=== PATIENT | female | born 1930 | race Caucasian/White ===

== ENCOUNTER 2016-11-16 15:05 | Emergency (ER) | payer OTHER ==
--- NOTE | ~2016-11-16 | CT71 ---
[facility] A Service of [facility] RADIOLOGY TEXT RESULTS PATIENT: BRY RM LOCATION: [facility] : 31 UNIT #: [id number] AGE: [address]: Panda Vera MD SEX: F ORDER DR: [id number] [facility] [address] [place], [place] [address] [id number] E MR#: [id number] Acc #: [id number] NAME: BRY RM : 1930 SEX: F STUDY DATE/TIME: 11/16/2016 14:05 UNIT: [facility] ROOM: STUDY DESCRIPTION: CT Head Wo Contrast Attending Physician: Panda Vera M.D. Ordering Physician: Panda Vera M.D. Primary Care Physician: Mars Myers A.P.R.N. MEDICAL IMAGING REPORT This report is preliminary unless electronic signature is present EXAM CT head, noncontrast. DATE OF EXAM 11/16/2016 HISTORY 86-year-old female in the ED after head injury. Slipped and fell today, striking left side of orbit region. Soft tissue laceration. TECHNIQUE CT examination of the head was performed without IV contrast. NOTE: This CT exam was performed with one or more of the following radiation dose reduction techniques: automatic exposure control, adjustment of mA and/or kV according to patient size, and iterative reconstruction. FINDINGS The examination shows a left supraorbital scalp hematoma, but there is no visible skull fracture. Deep to this, there is a small hemorrhagic cortical contusion in the underlying frontal lobe with a tiny amount of adjacent subarachnoid hemorrhage. There is no evidence of additional hemorrhage, acute cerebral edema or mass effect. No additional acute intracranial abnormalities demonstrated. Mild generalized cerebral cortical atrophy. Diffuse low-attenuation white matter changes, nonspecific, but likely related to chronic small vessel disease. IMPRESSION 1. Small acute hemorrhagic left frontal lobe cortical contusion with adjacent tiny amount of subarachnoid hemorrhage. This is deep to the left supraorbital scalp hematoma. No skull fracture. No associated cerebral edema or mass effect. No additional acute intracranial [facility] A Service of [facility] RADIOLOGY TEXT RESULTS PATIENT: BRY RM LOCATION: [facility] : 31 UNIT #: [id number] AGE: [address]: Panda Vera MD SEX: F ORDER DR: abnormalities demonstrated. 2. Mild generalized cerebral atrophy. 3. Results were discussed by telephone with the ED physician prior to dictation. Dictated by... Armando Mims M.D. THIS IS AN ELECTRONICALLY VERIFIED REPORT Armando Mims M.D. at 11/17/2016 5:55 AM DEISY/sergio TD: 11/16/2016 16:47 JOB #: [id number] MEDICAL IMAGING REPORT COPY
--- NOTE | ~2016-11-16 | CR132 ---
[facility] A Service of [facility] RADIOLOGY TEXT RESULTS PATIENT: BRY RM LOCATION: [facility] : 31 UNIT #: [id number] AGE: [address]: Panda Vera MD SEX: F ORDER DR: [id number] [facility] [address] [place], [place] [address] [id number] E MR#: [id number] Acc #: [id number] NAME: BRY RM : 1930 SEX: F STUDY DATE/TIME: 11/16/2016 13:32 UNIT: [facility] ROOM: STUDY DESCRIPTION: CR Forearm 2 View Lt Attending Physician: Panda Vera M.D. Ordering Physician: aPnda Vera M.D. Primary Care Physician: Mars Myers A.P.R.N. MEDICAL IMAGING REPORT This report is preliminary unless electronic signature is present EXAM Left forearm series. DATE OF EXAM 11/16/2016 HISTORY 86-year-old female in the ED with left forearm pain and bruising after a fall today prior to arrival. TECHNIQUE 2 view left forearm series. FINDINGS No definite acute forearm fracture is identified. Probable old fracture deformity involving the base of the radial styloid. Remainder of the exam is negative. IMPRESSION No acute osseous abnormality. Probable old fracture deformity of the distal radius. Dictated by... Armando Mims M.D. THIS IS AN ELECTRONICALLY VERIFIED REPORT Armando Mims M.D. at 11/17/2016 5:55 AM DEISY/sergio TD: 11/16/2016 15:54 JOB #: [id number] [facility] A Service of [facility] RADIOLOGY TEXT RESULTS PATIENT: BRY RM LOCATION: [facility] : 31 UNIT #: [id number] AGE: [address]: Panda Vera MD SEX: F ORDER DR: MEDICAL IMAGING REPORT COPY
--- NOTE | ~2016-11-16 | CT52 ---
[facility] A Service of [facility] RADIOLOGY TEXT RESULTS PATIENT: BRY RM LOCATION: [facility] : 31 UNIT #: [id number] AGE: [address]: Panda Vera MD SEX: F ORDER DR: [id number] [facility] [address] [place], [place] [address] [id number] E MR#: [id number] Acc #: [id number] NAME: BRY RM : 1930 SEX: F STUDY DATE/TIME: 11/16/2016 14:08 UNIT: [facility] ROOM: STUDY DESCRIPTION: CT Cervical Spine Wo Cont Attending Physician: Panda Vera M.D. Ordering Physician: Panda Vera M.D. MEDICAL IMAGING REPORT This report is preliminary unless electronic signature is present EXAM CT cervical spine 11/16/2016. HISTORY 86-year-old female in the ED after head injury today. Fell, striking left orbit region. She complains of posterior neck pain. TECHNIQUE Thin-section axial CT images were obtained from the skull base through the lower margin of T2. Sagittal and coronal images were reconstructed. This CT exam was performed with one or more of the following radiation dose reduction techniques: automatic exposure control, adjustment of mA and/or kV according to patient size, and iterative reconstruction. FINDINGS No fracture or other acute osseous abnormality is demonstrated. Moderately severe degenerative disc space changes are present at C3-C4, C4-C5 and C5-C6. Advanced bilateral degenerative facet arthropathy throughout the cervical spine with slight anterolisthesis at C3-C4. IMPRESSION 1. No fracture or other acute osseous abnormality. 2. Multilevel mid- and lower cervical degenerative facet arthropathy and extensive bilateral degenerative facet arthropathy throughout the cervical spine. 3. Slight anterolisthesis at C3-C4. Dictated by... Armando Mims M.D. THIS IS AN ELECTRONICALLY VERIFIED REPORT [facility] A Service of [facility] RADIOLOGY TEXT RESULTS PATIENT: BRY RM LOCATION: [facility] : 31 UNIT #: [id number] AGE: [address]: Panda Vera MD SEX: F ORDER DR: Armando Mims M.D. at 11/17/2016 5:55 AM RGW/pcl TD: 11/16/2016 16:51 JOB #: [id number] MEDICAL IMAGING REPORT COPY
--- NOTE | ~2016-11-16 | CR150 ---
[facility] A Service of [facility] & [facility] RADIOLOGY TEXT RESULTS PATIENT: BRY RM LOCATION: [facility] : 31 UNIT #: [id number] AGE: [address]: Panda Vera MD SEX: F ORDER DR: [id number] [facility] [address] [place], [place] [address] [id number] E MR#: [id number] Acc #: [id number] NAME: BRY RM : 1930 SEX: F STUDY DATE/TIME: 11/16/2016 13:34 UNIT: [facility] ROOM: STUDY DESCRIPTION: CR Hip Min 2 Views Lt Attending Physician: Panda Vera M.D. Ordering Physician: Panda Vera M.D. MEDICAL IMAGING REPORT This report is preliminary unless electronic signature is present EXAM Left hip series 11/16/2016. HISTORY 86-year-old female in the ED with left hip pain and bruising after a fall today. TECHNIQUE Two-view left hip series. FINDINGS No fracture, dislocation or other acute osseous abnormality is visible. IMPRESSION Negative left hip series. Dictated by... Armando Mims M.D. THIS IS AN ELECTRONICALLY VERIFIED REPORT Armando Mims M.D. at 11/17/2016 5:55 AM DEISY/noah TD: 11/16/2016 15:53 JOB #: [id number] MEDICAL IMAGING REPORT COPY
[~2016-11-16 15:05] MED LIST: ASPIRIN81 M2 PO; ASPIRINEC PO; ATENOLOL PO; CALCIUM 500 + D1 TAB PO; FOSAMAX PO; LIDODERM30 EA TOP; LORTAB 7.5-3251 EACH PO; NITROGLYGERIN0.4 MG SL; NITROQUICK0.4 MG SL; NORCO 7.5-3251 EACH PO; OSCAL + D PO; PLENDIL PO; PLENDIL10 MG PO; PLETAL100 M2 PO; PLETAL50 MG PO; PREDNISONE PO; PRINIVIL; PRINIVIL10 MG PO; PRINIVIL5 MG PO; SIMVASTATIN40 MG PO; SPIRIVA18 MCG INH; SPIRIVA18 MCG PO; TENORMIN50 MG PO; TIMOPTIC2.5 ML OS; VITAMIN C; VITAMIN C PO; VITAMIN C500 M1 PO; VITAMIN C500 MG PO; ZESTRIL10 M2 PO; ZOCOR PO
[2016-11-16 15:48] LABS: BASOPHIL% 0.4 % (0-2.5); EOSINOPHIL% 0.1 % (0.0-7.0); HEMATOCRIT 27.3 % (35.0-45.0); HEMOGLOBIN 8.3 gm/dL (12.0-16.0); LYMPHOCYTE# 0.8 X10e3 (1.0-3.5); LYMPHOCYTE% 8.8 % (17.0-45.0); MEAN CELL VOLUME 74.5 FL (83-96); MEAN CORPUSCULAR HEMOGLOBIN 22.7 PG (28-34); MEAN CORPUSCULAR HGB CONC 30.5 g/dL (30-36); MEAN PLATELET VOLUME 8.3 FL (6.5-11.5); MONOCYTE# 0.5 X10e3 (0-1.0); MONOCYTE% 5.6 % (3.0-12.0); NEUTROPHIL# 7.5 X10e3 (1.5-7.1); NEUTROPHIL% 85.1 % (40-75); PLATELET COUNT 171 X10e3 (140-420); RED BLOOD COUNT 3.66 X10e (3.90-5.30); RED CELL DISTRIBUTION WIDTH 17.5 % (11.0-15.5); WHITE BLOOD COUNT 8.8 X10e3 (4.0-10.5)
[2016-11-16 15:52] LABS: PARTIAL THROMBOPLASTIN TIME 24.7 SECONDS (23.5-31.3); PROTHROMBIN TIME (PATIENT) 10.5 SECONDS (9.6-11.5)
[2016-11-16 15:58] LABS: BLOOD UREA NITROGEN 24 mg/dL (9-23); BUN/CREATININE RATIO 34.28; CALCIUM SERUM 9.1 mg/dL (8.4-10.2); CARBON DIOXIDE 28 mmol/L (22-31); CHLORIDE 105 mmol/L (100-111); CREATININE SERUM 0.7 mg/dL (0.6-1.4); GLOM FILT RATE Estimated ABOVE60 mL/min (>60); GLUCOSE FASTING 136 mg/dL (70-110); POTASSIUM 4.2 mmol/L (3.5-5.1); SODIUM 137 mmol/L (135-145)
[2016-11-16 16:06] LABS: DIFF IND NO
== END 2016-11-16 16:08 | disposition hospice, home (50) ==
LOC: CED 15:05
PROVIDERS: Emergency Medicine
DX: S06.300A Unspecified focal traumatic brain injury without loss of consciousness, initial encounter (principal); S01.81XA Laceration without foreign body of other part of head, initial encounter; Z23 Encounter for immunization; I10 Essential (primary) hypertension; E11.9 Type 2 diabetes mellitus without complications; Z88.2 Allergy status to sulfonamides; W01.0XXA Fall on same level from slipping, tripping and stumbling without subsequent striking against object, initial encounter; Y92.9 Unspecified place or not applicable
CPT/HCPCS: 12013; 36415; 70450; 72125; 73090; 73502; 80048; 85025; 85610; 85730; 90471; 90715; 99285